=== PATIENT | female | born 1990 | race Caucasian/White ===

== ENCOUNTER → 2016-09-12 | Outpatient (CLI) | payer OTHER ==
--- NOTE | 2016-09-12 15:10 | US ---
Dear Dr. Brady, Thank you very much for allowing us to see your patient, Katherine Mack. As you know, she is a 25 ye ar old, who was asked to see us to confirm dating and for 1st trimester genetic screening. Her has been uncomplicated to date. She denies any cramping, leakage of fluid, or vaginal bleeding. DATING: LMP: 06/15/16, and 9 week US Gestational Age by Dates: 12 weeks 5 days EDC: 03/22/17 US FINDINGS: Number: 1 Placenta: Left lateral FHR: 161 bpm CRL: 70 mm Gestational Age: 13 weeks 0 days Nuchal Translucency: 1.6 mm Nasal Bone: Present Evaluation of first trimester anatomy shows a normal calvarium, choroid plexus, stomach, abdominal co rd insertion, legs, and arms. IMPRESSION: 1. Genetic Screening: Today, we saw a normal NT measurement and a nasal bone. These findings decrease the risk of Trisomy 21. We discussed the option of additional screening with either the Sequen tial Screen, which has a 95% detection rate for Trisomy 21 and also screens for ONTD and Trisomy 18, or NIPT, which has a 99% detection rate for Trisomy 21 and also screens for Trisomy 13 & 18 and sex c hromosome aneuploidy. Lastly, we discussed the option of diagnostic testing via CVS or amniocentesis which is the only way to definitively exclude aneuploidy. After our discussion, the couple opte d to proceed with the Sequential Screen. - 1st trimester blood draw performed today. We will call the patient with the results. - Instructions were given for the 2nd trimester blood draw after 15 weeks. - Anatomy US at 19-20 weeks 2. EDC: Based on today's ultrasound, the CRL is consistent with the previously stated EDC of 03/22/17, which is based on LMP and 9 week US. This should be finalized as her due date. Thank you again for sending this patient to see us today. Approximately 15 minutes of a total visit t ramon of 12 minutes were spent with this patient today in direct face to face counseling regarding toda y's US findings and the above recommendations. If you have any questions, please do not hesitate to contact me at . Izzy Weaver MD Maternal- Medicine
--- NOTE | 2016-09-12 15:31 | US ---
Obstetrical Sonogram History: 25-year-old with estimated gestational age of 12 weeks 5 days and EDC of March 22, 2017. Comparison: None available. Findings: There is a single living intrauterine with a heart rate of 161 beats per minute. Average crown-rump length is 7.0 cm, for estimated gestational age of 13 weeks 0 days. Nuchal trans lucency is 1.6 mm. The nasal bone is visible. The amniotic fluid volume is subjectively normal. No overt anatomic abnormality is identified, although assessment is limited by early gestational age. The placenta is left lateral. The ovaries are not visible. Impression: 1. Single living intrauterine gestation with size consistent with dates. 2. Normal nuchal translucency. 3. Detailed anatomic survey is recommended at 19-20 weeks. Please see separate dictation for consultation performed by Izzy Weaver MD, the same samina cadena.
== END ==
LOC: FIMAGING 13:24
PROVIDERS: ATTEND Obstetrics & Gynecology
DX: Z36 Encounter for antenatal screening of mother (principal); Z3A.12 12 weeks gestation of pregnancy

== ENCOUNTER → 2016-11-02 | Outpatient (CLI) | payer OTHER | LOC: FIMAGING 08:01 | PROVIDERS: ATTEND Obstetrics & Gynecology | DX: Z34.01 Encounter for supervision of normal first pregnancy, first trimester (principal); Z3A.09 9 weeks gestation of pregnancy ==

== ENCOUNTER 2017-03-09 18:22 | Observation (INO) | payer OTHER ==
[2017-03-09 19:55] LABS: % IMMATURE GRANULYOCYTES 0.6 % (0.0-1.1); ABSOLUTE IMMATURE GRANULOCYTES 0.06 10^3/uL (0.00-0.10); ADD DIFF? NO; ADD MORPH? NO; ADD SCAN? NO; ATYPICAL LYMPHOCYTE FLAG 0 (0-99); FRAGMENT RBC FLAG 0 (0-99); HEMATOCRIT 36.1 % (38.0-47.0); HEMOGLOBIN 12.5 g/dL (12.6-16.3); LEFT SHIFT FLG 30 (0-99); LIPEMIA HEMOLYSIS FLAG 90 (0-99); MEAN CELL HEMOGLOBIN 30.6 pg (27.9-34.1); MEAN CELL HEMOGLOBIN CONCENTR. 34.6 g/dL (32.4-36.7); MEAN CELL VOLUME 88.3 fL (81.5-99.8); MEAN PLATELET VOLUME 11.3 fL (8.7-11.7); PLATELET CLUMPS FLAG 20 (0-99); PLATELET COUNT 174 10^3/uL (150-400); RED BLOOD CELL COUNT 4.09 10^6/uL (4.18-5.33); RED CELL DISTRIBUTION WIDTH 13.3 % (11.5-15.2)
[2017-03-09 20:08] LABS: ALANINE AMINOTRANSFERASE 23 IU/L (9-52); ASPARTATE AMINOTRANSFERASE 19 IU/L (14-46); BILIRUBIN,TOTAL 0.3 mg/dL (0.1-1.4); BILIRUBIN-CONJUGATED 0.2 mg/dL (0.0-0.5); BILIRUBIN-UNCONJUGATED 0.1 mg/dL (0.0-1.1); CREATININE 0.6 mg/dL (0.6-1.0); GLOMERULAR FILTRATION RATE > 60; LACTATE DEHYDROGENASE 461 IU/L (313-618); URIC ACID 5.7 mg/dL (2.5-6.8)
== END 2017-03-09 21:08 | disposition home or self-care (01) ==
LOC: FLD 18:22
PROVIDERS: ADMIT Midwife; ATTEND Midwife
DX: Z34.93 Encounter for supervision of normal pregnancy, unspecified, third trimester (principal); Z3A.38 38 weeks gestation of pregnancy

== ENCOUNTER 2017-03-11 02:41 | Inpatient (IN) | payer OTHER ==
[2017-03-11] MEDS ORDERED: OLIVE OIL 118 ML BTL MISC PRN (03:12)
[2017-03-11] MEDS ORDERED: TERBUTALINE SULFATE 1 MG/ML VIAL IV PRN (03:12)
[2017-03-11] MEDS ORDERED: EPSOM SALT 454 GM TP PRN (03:12)
[2017-03-11] MEDS ORDERED: OXYTOCIN/RINGERS LACTATE 1,000 ML IV PRN (03:12)
[2017-03-11] MEDS ORDERED: IBUPROFEN 600 MG TAB PO PRN (03:12)
[2017-03-11] MEDS ORDERED: LR 1,000 ML IV PRN (03:12)
[2017-03-11 04:05] LABS: % IMMATURE GRANULYOCYTES 0.6 % (0.0-1.1); ABSOLUTE IMMATURE GRANULOCYTES 0.07 10^3/uL (0.00-0.10); ADD DIFF? NO; ADD MORPH? NO; ADD SCAN? NO; ATYPICAL LYMPHOCYTE FLAG 10 (0-99); FRAGMENT RBC FLAG 0 (0-99); HEMOGLOBIN 12.8 g/dL (12.6-16.3); LEFT SHIFT FLG 10 (0-99); LIPEMIA HEMOLYSIS FLAG 90 (0-99); MEAN CELL HEMOGLOBIN 30.4 pg (27.9-34.1); MEAN CELL HEMOGLOBIN CONCENTR. 34.6 g/dL (32.4-36.7); MEAN CELL VOLUME 87.9 fL (81.5-99.8); MEAN PLATELET VOLUME 11.2 fL (8.7-11.7); PLATELET CLUMPS FLAG 0 (0-99); PLATELET COUNT 167 10^3/uL (150-400); RED BLOOD CELL COUNT 4.21 10^6/uL (4.18-5.33); RED CELL DISTRIBUTION WIDTH 13.4 % (11.5-15.2)
[2017-03-11 04:15] LABS: ALANINE AMINOTRANSFERASE 26 IU/L (9-52); ASPARTATE AMINOTRANSFERASE 17 IU/L (14-46); BILIRUBIN,TOTAL 0.3 mg/dL (0.1-1.4); BILIRUBIN-CONJUGATED 0.2 mg/dL (0.0-0.5); BILIRUBIN-UNCONJUGATED 0.1 mg/dL (0.0-1.1); CREATININE 0.6 mg/dL (0.6-1.0); GLOMERULAR FILTRATION RATE > 60; LACTATE DEHYDROGENASE 420 IU/L (313-618); URIC ACID 5.9 mg/dL (2.5-6.8)
--- NOTE | 2017-03-11 09:18 | PDGENHP ---
History and Physical - Chief Complaint 26 y.o. at 39 3/7 with PROM - History of Present Illness 26 y.o. female at 39 3/7 weeks with PROM. Mildly elevated BPs with normal PIH labs and no current PIH symptoms. Afebrile. NST_ reactive CAT I SVE- 2/60/-3 Early labor. GBS NEG History Information - Allergies/Home Medication List Allergies/Adverse Reactions: No Known Allergies Allergy (Unverified 03/09/17 19:24) Home Medications: Vitamins Tablet 1 tab DAILY 03/09/17 [Last Taken 03/10/17 08:00] Zyrtec 10 mg PRN MDD 10 03/09/17 [Last Taken 03/10/17 08:00] I have personally reviewed and updated: family history, medical history, social history, surgical history - Past Medical History asthma - Surgical History Reports: no pertinent surgical hx - Family History Positive for: asthma, cancer, lung disease - Social History Smoking Status: Never smoked Alcohol Use: None Drug Use: None Review of Systems ROS: 10pt was reviewed & negative except for what was stated in HPI & below Constitutional: Reports: no symptoms EENMT: Reports: no symptoms Cardiac: Reports: no symptoms Respiratory: Reports: no symptoms Gastrointestinal: Reports: no symptoms Genitourinary: Reports: no symptoms Muscolosketal: Reports: no symptoms Skin: Reports: no symptoms Neurological: Reports: no symptoms Hematologic/Lymphatic: Reports: no symptoms Immunologic/Allergy: Reports: no symptoms Physical Exam Constitutional: no apparent distress Eyes: PERRL Ears, Nose, Mouth, Throat: hearing normal, ears appear normal Cardiovascular: regular rate and rhythym, no murmur, rub, or gallop Respiratory: no respiratory distress Gastrointestinal: soft, non-tender abdomen Genitourinary: no bladder fullness, no bladder tenderness Skin: warm, normal color Musculoskeletal: full muscle strength Neurologic: AAOx3, sensation intact bilaterally Psychiatric: interacting appropriately, not anxious Lymph, Heme, Immunologic: no cervical LAD Lab Data & Imaging Review 03/11/17 03:45 03/11/17 03:45 WBC 10.92 10^3/uL (3.80-9.50) H 03/11/17 03:45 RBC 4.21 10^6/uL (4.18-5.33) 03/11/17 03:45 Hgb 12.8 g/dL (12.6-16.3) 03/11/17 03:45 Hct 37.0 % (38.0-47.0) L 03/11/17 03:45 MCV 87.9 fL (81.5-99.8) 03/11/17 03:45 MCH 30.4 pg (27.9-34.1) 03/11/17 03:45 MCHC 34.6 g/dL (32.4-36.7) 03/11/17 03:45 RDW 13.4 % (11.5-15.2) 03/11/17 03:45 Plt Count 167 10^3/uL (150-400) 03/11/17 03:45 MPV 11.2 fL (8.7-11.7) 03/11/17 03:45 Neut % (Auto) 79.5 % (39.3-74.2) H 03/11/17 03:45 Lymph % (Auto) 12.4 % (15.0-45.0) L 03/11/17 03:45 [place] % (Auto) 6.0 % (4.5-13.0) 03/11/17 03:45 Eos % (Auto) 1.1 % (0.6-7.6) 03/11/17 03:45 Baso % (Auto) 0.4 % (0.3-1.7) 03/11/17 03:45 Nucleat RBC Rel Count 0.0 % (0.0-0.2) 03/11/17 03:45 Absolute Neuts (auto) 8.69 10^3/uL (1.70-6.50) H 03/11/17 03:45 Absolute Lymphs (auto) 1.35 10^3/uL (1.00-3.00) 03/11/17 03:45 Absolute Monos (auto) 0.65 10^3/uL (0.30-0.80) 03/11/17 03:45 Absolute Eos (auto) 0.12 10^3/uL (0.03-0.40) 03/11/17 03:45 Absolute Basos (auto) 0.04 10^3/uL (0.02-0.10) 03/11/17 03:45 Absolute Nucleated RBC 0.00 10^3/uL (0-0.01) 03/11/17 03:45 Immature Gran % 0.6 % (0.0-1.1) 03/11/17 03:45 Immature Gran # 0.07 10^3/uL (0.00-0.10) 03/11/17 03:45 BUN 10 mg/dL (7-23) 03/11/17 03:45 Creatinine 0.6 mg/dL (0.6-1.0) 03/11/17 03:45 Estimated GFR > 60 03/11/17 03:45 Uric Acid 5.9 mg/dL (2.5-6.8) 03/11/17 03:45 Total Bilirubin 0.3 mg/dL (0.1-1.4) 03/11/17 03:45 Conjugated Bilirubin 0.2 mg/dL (0.0-0.5) 03/11/17 03:45 Unconjugated Bilirubin 0.1 mg/dL (0.0-1.1) 03/11/17 03:45 AST 17 IU/L (14-46) 03/11/17 03:45 ALT 26 IU/L (9-52) 03/11/17 03:45 Lactate Dehydrogenase 420 IU/L (313-618) 03/11/17 03:45 Patient ABO/Rh O POSITIVE 03/11/17 03:45 Antibody Screen NEGATIVE 03/11/17 03:45 Assessment & Plan Assessment: 26 y.o. @ 39 3/7 weeks with PROM VS- mildly elevated BPs with normal PIH labs. Afebrile NST- reactive CAT I. GBS NEG. Patient would like to ambulate and then reevaluate in 2 hours. Plan: Allow patient to ambulate x 2 hours. Reevaluate for active labor. VS and EFM per protocol.
--- NOTE | 2017-03-11 09:23 | OBPROG ---
OBG Labor Progress Note Assessment/Plan: Assessment: 26 y.o. with PROM. Mildly elevated BPs with normal PIH labs. NST- reactive CAT I. GBS NEG. Plan: Allow patient to ambulate x 2 hours and reevaluate for labor. VS and EFM per protocol 03/11/17 09:20 Subjective: Comfortable and resting in bed with present. Leaking clear fluid. Objective: 03/11/17 03:45 03/11/17 03:45 Patient ABO/Rh O POSITIVE 03/11/17 03:45 Uric Acid 5.9 mg/dL (2.5-6.8) 03/11/17 03:45 Total Bilirubin 0.3 mg/dL (0.1-1.4) 03/11/17 03:45 Conjugated Bilirubin 0.2 mg/dL (0.0-0.5) 03/11/17 03:45 Unconjugated Bilirubin 0.1 mg/dL (0.0-1.1) 03/11/17 03:45 AST 17 IU/L (14-46) 03/11/17 03:45 ALT 26 IU/L (9-52) 03/11/17 03:45 Lactate Dehydrogenase 420 IU/L (313-618) 03/11/17 03:45 - SVE Dilation (cm): 2 Effacement (%): 50 Station: -3 - Physical Exam General Appearance: WD/WN, alert, no apparent distress Estimated Weight: 2501-3400g EENT: normal ENT inspection Neck: non-tender, full range of motion, normal inspection Respiratory: lungs clear, normal breath sounds Cardiac/Chest: regular rate, rhythm Abdomen: non-tender, soft Extremities: non-tender, normal inspection Back: Normal inspection Skin: normal color, warm/dry Neuro/Psych: alert, normal mood/affect, oriented x 3 Oxytocin Orders Assessment - Pre-Induction/Augmentation Assessment Gestational Age: 38 week(s) and 3 day(s) ICD10 Worksheet Patient Problems: Problems Problem Status Onset 39 weeks gestation of Acute PROM (premature rupture of membranes) Acute - ICD10 Problem Qualifiers (1) PROM (premature rupture of membranes) Qualifiers: PROM onset of labor timing: P PROM gestational age: P (2) 39 weeks gestation of
[2017-03-11] MEDS ORDERED: ONDANSETRON 4 MG/2 ML VIAL IVP PRN (09:30)
[2017-03-11] MEDS ORDERED: TERBUTALINE SULFATE 1 MG/ML VIAL ONE (10:05)
[2017-03-11] MEDS ORDERED: MISOPROSTOL 200 MCG TAB ONE (10:05)
[2017-03-11] MEDS ORDERED: LIDOCAINE 1% 300 MG/30 ML SDV ONE (10:05)
[2017-03-11] MEDS ORDERED: OLIVE OIL 118 ML BTL ONE (10:05)
[2017-03-11] MEDS ORDERED: OXYTOCIN 10 UNIT/ML VIAL ONE (10:05)
[2017-03-11] MEDS ORDERED: AMMONIA AROMATIC 1 EACH AMP IH ONE (10:05)
--- NOTE | 2017-03-11 11:09 | OBPROG ---
OBG Labor Progress Note Assessment/Plan: Assessment: 26 yo @ 39 3/7, labor Plan: 03/11/17 11:08 FWB reassuring. GBS neg. Expect . Subjective: 26 yo @ 39 3/7, labor-pushing now. Objective: 03/11/17 03:45 03/11/17 03:45 Patient ABO/Rh O POSITIVE 03/11/17 03:45 Uric Acid 5.9 mg/dL (2.5-6.8) 03/11/17 03:45 Total Bilirubin 0.3 mg/dL (0.1-1.4) 03/11/17 03:45 Conjugated Bilirubin 0.2 mg/dL (0.0-0.5) 03/11/17 03:45 Unconjugated Bilirubin 0.1 mg/dL (0.0-1.1) 03/11/17 03:45 AST 17 IU/L (14-46) 03/11/17 03:45 ALT 26 IU/L (9-52) 03/11/17 03:45 Lactate Dehydrogenase 420 IU/L (313-618) 03/11/17 03:45 - SVE Dilation (cm): 10 Effacement (%): 100 Dilation Complete Date: 03/11/17 Dilation Complete Time: 10:45 Rubio Current Contraction Pattern: Regular FHR (bpm): 150 FHR Pattern Variability: Moderate FHR Category: 2 Membranes: SROM Amniotic Fluid Color: Clear - Physical Exam Estimated Weight: 2501-3400g Oxytocin Orders Assessment - Pre-Induction/Augmentation Assessment Gestational Age: 38 week(s) and 3 day(s) Estimated Weight: 2501-3400g ICD10 Worksheet Patient Problems: Problems Problem Status Onset 39 weeks gestation of Acute PROM (premature rupture of membranes) Acute
[2017-03-11] MEDS ORDERED: SIMETHICONE 80 MG TAB CHEW PO PRN (12:12)
[2017-03-11] MEDS ORDERED: HYDROCORTISONE 0.5% CREAM TP PRN (12:12)
--- NOTE | 2017-03-11 12:12 | OBDEL ---
Info Type: Vaginal GBS+: No Indications for Delivery: Spontaneous Labor Vaginal Delivery - Labor and Delivery Onset of Contractions Date: 03/10/17 Onset of Contractions Time: 06:00 Onset of Contractions Type: Spontaneous Rupture of Membranes Date: 03/11/17 Rupture of Membranes Time: 00:45 Rupture of Membranes Type: Spontaneous Amniotic Fluid Color: Clear Dilation Complete Date: 03/11/17 Dilation Complete Time: 10:45 Placenta Delivery Date: 03/11/17 Laceration: 1st Degree Repair: 3-0, Vicryl Vaginal Sponge Count Correct: Yes Vaginal Needle Count Correct: Yes Vaginal Sweep Performed: No EBL: 100 ml Delivery Events: None - Medications Labor Augmentation/Induction Methods Used: None Data Rubio Delivery Date: 03/11/17 Delivery Time: 11:56 MENDY: 03/22/17 Gestational Age: 38 week(s) and 3 day(s) Sex of Infant: Female Score (1 Min): 8 Score (5 Min): 9 ICD10 Worksheet Patient Problems: Problems Problem Status Onset 39 weeks gestation of Acute PROM (premature rupture of membranes) Acute
--- NOTE | 2017-03-11 12:13 | OBGCSDC ---
General Delivery Information - General Info : 1 Para: 0 Abortions: 0 Delivery Physician/CNM: Grace Johnson Admission Date: 03/11/17 Labs: Patient ABO/Rh O POSITIVE 03/11/17 03:45 Hct 37.0 % (38.0-47.0) L 03/11/17 03:45 Vaginal - Diagnosis Labor: Spontaneous Rupture of Membranes Type: Spontaneous Amniotic Fluid Color: Clear Laceration: 1st Degree Repair: 3-0, Vicryl Delivery Events: None - Hospital Course Antepartum: none Intrapartum: none : none - Delivery Type: Vaginal EBL: 100 ml Data Rubio Delivery Date: 03/11/17 Delivery Time: 11:56 MENDY: 03/22/17 Gestational Age: 38 week(s) and 3 day(s) Sex of Infant: Female Score (1 Min): 8 Score (5 Min): 9
[2017-03-11] MEDS ORDERED: CALCIUM CARBONATE 500 MG CHEWABLE TAB PO ONE (18:14)
[2017-03-11] MEDS: CALCIUM CARBONATE 500 MG CHEWABLE TAB PO SCH (18:16)
[2017-03-11] MEDS: ACETAMINOPHEN 325 MG TAB PO PRN (23:37)
[2017-03-12] MEDS: ACETAMINOPHEN 325 MG TAB PO PRN ×5 (04:15→23:27)
--- NOTE | 2017-03-12 07:50 | OBPP ---
Progress Note Assessment/Plan: Assessment: 26 y.o. s/p . PPD #1. Recovering well. Mildly elevated BPs with normal PIH labs. GBS NEG. Plan: Routine orders. Continue to monitor BPs. consult 03/11/17 09:20 03/12/17 07:47 Subjective: Reports feeling well with good pain control and light vaginal bleeding. infant. Eating and drinking without nausea or vomiting. Ambulating without vertigo. Voiding and stooling without difficulty. Appropriate mood with good support system. Objective: 03/11/17 03:45 03/11/17 03:45 Patient ABO/Rh O POSITIVE 03/11/17 03:45 Uric Acid 5.9 mg/dL (2.5-6.8) 03/11/17 03:45 Total Bilirubin 0.3 mg/dL (0.1-1.4) 03/11/17 03:45 Conjugated Bilirubin 0.2 mg/dL (0.0-0.5) 03/11/17 03:45 Unconjugated Bilirubin 0.1 mg/dL (0.0-1.1) 03/11/17 03:45 AST 17 IU/L (14-46) 03/11/17 03:45 ALT 26 IU/L (9-52) 03/11/17 03:45 Lactate Dehydrogenase 420 IU/L (313-618) 03/11/17 03:45 Temp Pulse Resp BP Pulse Ox 36.7 C 106 H 18 113/66 92 03/11/17 20:00 03/11/17 20:00 03/11/17 20:00 03/12/17 04:50 03/12/17 04:50 Uterine Position/Fundal Height: Umbilicus -1 Uterine Tone: Firm Physical Exam - Physical Exam General Appearance: WD/WN, alert, no apparent distress EENT: normal ENT inspection Neck: non-tender, full range of motion, normal inspection Respiratory: lungs clear, normal breath sounds Cardiac/Chest: regular rate, rhythm Abdomen: non-tender, soft Extremities: non-tender, normal inspection Back: Normal inspection Skin: normal color, warm/dry Neuro/Psych: alert, normal mood/affect, oriented x 3
[2017-03-12] MEDS: DOCUSATE SODIUM 100 MG CAP PO PRN ×2 (09:07→23:27)
[2017-03-12] MEDS: CALCIUM CARBONATE 500 MG CHEWABLE TAB PO SCH ×2 (12:29→23:28)
[2017-03-12 21:12] VITALS: RESP 14; O2SAT 96
[2017-03-13] MEDS: ACETAMINOPHEN 325 MG TAB PO PRN (06:17)
--- NOTE | 2017-03-13 08:04 | OBGCSDC ---
General Delivery Information - General Info : 1 Para: 1 Delivery Physician/CNM: Grace Johnson Admission Date: 03/11/17 Labs: Patient ABO/Rh O POSITIVE 03/11/17 03:45 Hct 37.0 % (38.0-47.0) L 03/11/17 03:45 Vaginal - Diagnosis Labor: Spontaneous Presentation at Delivery: Vertex Rupture of Membranes Type: Spontaneous Amniotic Fluid Color: Clear Laceration: 1st Degree Repair: 3-0, Vicryl Delivery Events: None - Operations/Procedures L&D Analgesia/Anesthesia Type: Local - Delivery L&D Analgesia/Anesthesia Type: Local [place] Data Rubio Delivery Date: 03/11/17 Delivery Time: 11:56 MENDY: 03/22/17 Gestational Age: 38 week(s) and 5 day(s) Sex of Infant: Female [place] Weight (gm): 2816 g Score (1 Min): 8 Score (5 Min): 9 Discharge Information - Discharge Information Discharge Medications: Ibuprofen, Vitamins Condition: Good Instruction/Follow Up: Four Weeks, Six Weeks Discharge Physician/CNM: Sun Clarke
[2017-03-13 11:26] VITALS: BP 122/84; PULSE 100; TEMP 97.8
[2017-03-13] MEDS: CALCIUM CARBONATE 500 MG CHEWABLE TAB PO SCH (12:09)
== END 2017-03-13 13:00 | disposition home or self-care (01) | DRG 775 ==
LOC: FLD 02:41 → OBSVTOIN 02:41 → FOB 14:45
PROVIDERS: ADMIT Midwife; ATTEND Obstetrics & Gynecology
PROC: 10E0XZZ Delivery of Products of Conception, External Approach (ICD-10-PCS; principal; 2017-03-11)
PROC: 0HQ9XZZ Repair Perineum Skin, External Approach (ICD-10-PCS; principal; 2017-03-11)
DX: O28.9 Unspecified abnormal findings on antenatal screening of mother (principal); R03.0 Elevated blood-pressure reading, without diagnosis of hypertension; O70.0 First degree perineal laceration during delivery; Z3A.38 38 weeks gestation of pregnancy; Z37.0 Single live birth
CPT/HCPCS: J2405; J2590; J3105

== ENCOUNTER → 2018-10-14 | Outpatient (CLI) | payer OTHER | LOC: FIMAGING 14:22 | PROVIDERS: ATTEND Obstetrics & Gynecology | DX: Z34.91 Encounter for supervision of normal pregnancy, unspecified, first trimester (principal); Z3A.13 13 weeks gestation of pregnancy ==

== ENCOUNTER → 2018-11-26 | Outpatient (CLI) | payer OTHER | LOC: FIMAGING 07:11 | PROVIDERS: ATTEND Obstetrics & Gynecology | DX: Z34.82 Encounter for supervision of other normal pregnancy, second trimester (principal); Z3A.19 19 weeks gestation of pregnancy ==